=== PATIENT | female | born 1990 | race Caucasian/White ===

== ENCOUNTER → 2019-03-20 | Outpatient (CLI) | payer BC ==
[~2019-03-20] MED LIST: BIRTH CONTROL1 EAC1 PO; IRON325 M1 PO; LEXAPRO10 MG PO; MACROBID100 M1 PO; MOTRIN800 MG PO; PNV PRENATAL HE1 TAB PO; TRAMADOL HCL50 MG PO; VISTARIL25 MG PO; XANAX0.25 MG PO
== END | disposition home or self-care (01) ==
LOC: RAD 14:52
DX: M54.2 Cervicalgia (principal); G43.909 Migraine, unspecified, not intractable, without status migrainosus; H53.2 Diplopia

== ENCOUNTER → 2020-02-12 | Outpatient (CLI) | payer BC | END | disposition home or self-care (01) | LOC: RAD 12:56 | DX: M25.572 Pain in left ankle and joints of left foot (principal); M79.672 Pain in left foot ==

== ENCOUNTER → 2025-01-16 | Outpatient (CLI) | payer OTHER | END | disposition home or self-care (01) | LOC: RAD 12:07 | PROVIDERS: ATTEND Family Medicine | DX: M25.561 Pain in right knee (principal) ==

== ENCOUNTER → 2025-04-30 | Outpatient (CLI) | payer OTHER ==
[2025-04-30 09:49] LABS: MEAN CELL VOLUME 92.3 fl (81.0-99.0); MEAN CORPUSCULAR HGB 30.0 pg (27.0-31.0); MEAN PLATELET VOLUME 9.6 fl (9.6-12.3); NUCLEATED RED BLOOD CELL 0.0 % (0.0-0.0); NUCLEATED RED BLOOD CELL 0.0 10*3/uL (0.0-0.0); PLATELET COUNT AUTOMATED 307.0 10*3/uL (130-400); RED CELL DISTRI WIDTH 11.9 % (0-14.5)
[2025-04-30 10:29] LABS: BUN 9 mg/dl (9-23); SGPT/ALT 26 U/L (5-49)
[2025-04-30 10:39] LABS: VITAMIN D, 25-HYDROXY 36.5 ng/mL (30-100)
[2025-05-01 18:07] LABS: NUCLEOLAR PATTERN 1:160 (.)
== END | disposition home or self-care (01) ==
LOC: LAB 09:30
PROVIDERS: ATTEND Family Medicine
DX: M25.561 Pain in right knee (principal); R60.9 Edema, unspecified; R53.83 Other fatigue